=== PATIENT | male | born 1995 | race Caucasian/White ===

== ENCOUNTER 2016-07-22 11:44 | Emergency (ER) | payer OTHER ==
[~2016-07-22] VITALS: Ht 185.4 cm; Wt 102.0 kg
[2016-07-22 11:49] VITALS: TEMP 37.5; Ht 185.4 cm; Wt 102.0 kg
[2016-07-22] MEDS ORDERED: KETOROLAC TROMETHAMINE 30 MG/ML VIAL IV STA (12:13)
[2016-07-22] MEDS ORDERED: SODIUM CHLORIDE 0.9% 1000ML 1,000 ML IV STA (12:13)
[2016-07-22 12:29] VITALS: O2SAT 95
[2016-07-22] MEDS ORDERED: ALBUT/IPRATROP 3MG/0.5MG NEB 3 ML VIAL INH ONE (12:30)
--- NOTE | 2016-07-22 12:33 | DIAGNOSTIC IMAGING REPORT ---
CHEST ONE VIEW PORTABLE CLINICAL HISTORY: Chills, sore throat, flulike symptoms COMPARISON STUDY: No previous studies for comparison. FINDINGS: The cardiac silhouette is borderline enlarged. There is no focal pulmonary consolidation. There is no failure. There are no pleural effusions.[ IMPRESSION: Borderline enlarged cardiac silhouette. No evidence of focal pulmonary consolidation Electronically signed by: Stefan Reyes M.D. 07/22/2016 12:31 PM Dictated Date/Time: 07/22/2016 12:30 PM
[2016-07-22 12:44] VITALS: PULSE 78; O2SAT 97
[2016-07-22 12:57] LABS: BASO % 0.1 %; BASO ABS # 0.01 K/uL (0-0.2); COMPLETE YES; EOS % 2.2 %; HEMATOCRIT 44.1 % (42-52); IG% 0.3 %; LYMPH % 10.5 %; LYMPH ABS # 1.28 K/uL (1.2-3.4); MEAN CELL VOLUME 85.1 fL (80-100); MEAN CORPUSCULAR HEMOGLOBIN 29.5 pg (25-34); MEAN CORPUSCULAR HGB CONC 34.7 g/dl (32-36); MONO % 10.6 %; NEUT % 76.3 %; PLATELET COUNT 201 K/uL (130-400); RED BLOOD COUNT 5.18 M/uL (4.7-6.1); WHITE BLOOD COUNT 12.17 K/uL (4.8-10.8)
--- NOTE | 2016-07-22 13:03 | EMERGENCY ROOM VISIT NOTE ---
History Report prepared by Julianne: Curtis Scanlon Under the Supervision of: Dr. Vinod Enrique M.D. First contact with patient: 12:01 Chief Complaint: FLU LIKE SX Stated Complaint: SORE THROAT, ACHEY BODY, CHILLS History of Present Illness The patient is a 21 year old male who presents to the Emergency Room with complaints of persistent throat pain starting 2 days ago. He also complains of a cough with brown sputum. He has worsening pain with swallowing. He also complains of a headache and generalized body aches. He has been taking Shani- [place] without relief. He took DayQuil 2 hours ago without relief. The patient denies chest pain, shortness of breath, nausea, vomiting, diarrhea, or any other complaints. Source of History: patient Onset: 2 days ago Position: throat Timing: other (persistent) Modifying Factors (Relieving): other (Shani-[place] without relief; DayQuil 2 hours ago without relief) Associated Symptoms: + cough, + headache, No SOB, No chest pain, No diarrhea , No nausea, No vomiting Review of Systems See HPI for pertinent positives & negatives. A total of 10 systems reviewed and were otherwise negative. Past Medical & Surgical Medical Problems: (1) Appendicitis Surgical Problems: (1) History of appendectomy Family History Patient reports no known family medical history. Social History Smoking Status: Never Smoker Marital Status: single Occupation Status: student Current/Historical Medications Scheduled Oseltamivir (Tamiflu), 75 MG PO BID Allergies Coded Allergies: No Known Allergies (Unverified , 07/22/16) Physical Exam Vital Signs Date Time Temp Pulse Resp B/P Pulse Ox O2 Delivery O2 Flow Rate FiO2 07/22/16 15:10 111 18 153/74 100 Room Air 07/22/16 13:58 109 07/22/16 13:40 111 18 139/75 100 07/22/16 12:44 78 14 97 Room Air 07/22/16 12:29 95 Room Air 07/22/16 11:49 37.5 100 18 139/85 95 Room Air Physical Exam GENERAL: Patient is a healthy-appearing well-nourished HEAD: Normocephalic atraumatic EYES: Ocular movements intact pupils equal and react to light OROPHARYNX mucous membranes are moist no exudates present no erythema or edema present NECK: Supple no nuchal rigidity. No evidence of meningitis or encephalitis on exam. CHEST: Good equal expansion LUNGS: Clear and equal to auscultation CARDIAC: Normal S1 and S2 ABDOMEN: Soft nontender no guarding BACK: No CVA tenderness EXTREMITIES: No pain upon palpation normal muscle strength in all groups no clubbing cyanosis or edema NEURO: Patient is following commands is answering questions appropriately. Alert and oriented x3 Cranial Nerves 2-12 grossly intact Medical Decision & Procedures ER Provider Diagnostic Interpretation: X-ray results as stated below per interpretation by me and the radiologist: CHEST ONE VIEW PORTABLE CLINICAL HISTORY: Chills, sore throat, flulike symptoms COMPARISON STUDY: No previous studies for comparison. FINDINGS: The cardiac silhouette is borderline enlarged. There is no focal pulmonary consolidation. There is no failure. There are no pleural effusions.[ IMPRESSION: Borderline enlarged cardiac silhouette. No evidence of focal pulmonary consolidation Electronically signed by: Stefan Reyes M.D. 07/22/2016 12:31 PM Dictated Date/Time: 07/22/2016 12:30 PM Laboratory Results 07/22/16 12:30 Red Blood Count 5.18, Mean Corpuscular Volume 85.1, Mean Corpuscular Hemoglobin 29.5, Mean Corpuscular Hemoglobin Concent 34.7, Mean Platelet Volume 10.0, Neutrophils (%) (Auto) 76.3, Lymphocytes (%) (Auto) 10.5, Monocytes (%) (Auto) 10.6, Eosinophils (%) (Auto) 2.2, Basophils (%) (Auto) 0.1, Neutrophils # (Auto ) 9.28, Lymphocytes # (Auto) 1.28, Monocytes # (Auto) 1.29, Eosinophils # (Auto ) 0.27, Basophils # (Auto) 0.01 07/22/16 12:30 Test 07/22/16 12:28 07/22/16 12:30 07/22/16 12:32 Influenza Type A (RT-PCR) POS for Influ A (NEG) Influenza Type B (RT-PCR) Neg for Influ B (NEG) White Blood Count 12.17 K/uL (4.8-10.8) Red Blood Count 5.18 M/uL (4.7-6.1) Hemoglobin 15.3 g/dL (14.0-18.0) Hematocrit 44.1 % (42-52) Mean Corpuscular Volume 85.1 fL (80-100) Mean Corpuscular Hemoglobin 29.5 pg (25-34) Mean Corpuscular Hemoglobin Concent 34.7 g/dl (32-36) Platelet Count 201 K/uL (130-400) Mean Platelet Volume 10.0 fL (7.4-10.4) Neutrophils (%) (Auto) 76.3 % Lymphocytes (%) (Auto) 10.5 % Monocytes (%) (Auto) 10.6 % Eosinophils (%) (Auto) 2.2 % Basophils (%) (Auto) 0.1 % Neutrophils # (Auto) 9.28 K/uL (1.4-6.5) Lymphocytes # (Auto) 1.28 K/uL (1.2-3.4) Monocytes # (Auto) 1.29 K/uL (0.11-0.59) Eosinophils # (Auto) 0.27 K/uL (0-0.5) Basophils # (Auto) 0.01 K/uL (0-0.2) RDW Standard Deviation 40.6 fL (36.4-46.3) RDW Coefficient of Variation 13.1 % (11.5-14.5) Immature Granulocyte % (Auto) 0.3 % Immature Granulocyte # (Auto) 0.04 K/uL (0.00-0.02) Anion Gap 9.0 mmol/L (3-11) Est Creatinine Clear Calc Drug Dose 133.3 ml/min Estimated GFR () 110.6 Estimated GFR (Non- 95.5 BUN/Creatinine Ratio 11.6 (10-20) Calcium Level 9.5 mg/dl (8.5-10.1) Total Bilirubin 0.8 mg/dl (0.2-1) Direct Bilirubin 0.2 mg/dl (0-0.2) Aspartate Amino Transf (AST/SGOT) 18 U/L (15-37) Alanine Aminotransferase (ALT/SGPT) 22 U/L (12-78) Alkaline Phosphatase 86 U/L (45-117) Total Protein 7.1 gm/dl (6.4-8.2) Albumin 3.9 gm/dl (3.4-5.0) Monoscreen NEG (NEG) Urine Color YELLOW Urine Appearance CLEAR (CLEAR) Urine pH 8.0 (4.5-7.5) Urine Specific [place] 1.020 (1.000-1.030) Urine Protein NEG (NEG) Urine Glucose (UA) NEG (NEG) Urine Ketones NEG (NEG) Urine Occult Blood NEG (NEG) Urine Nitrite NEG (NEG) Urine Bilirubin NEG (NEG) Urine Urobilinogen NEG (NEG) Urine Leukocyte Esterase NEG (NEG) Labs reviewed by ED physician. Medications Administered Medications (Trade) Dose Ordered Sig/Yuri Route Start Time Stop Time Status Last Admin Dose Admin Sodium Chloride (Nss 1000ml) 1,000 ml @ 999 mls/hr Q1H1M STAT IV 07/22/16 12:13 07/22/16 13:13 DC 07/22/16 12:38 999 MLS/HR Ketorolac Tromethamine (Toradol Inj) 30 mg NOW STAT IV 07/22/16 12:13 07/22/16 12:15 DC 07/22/16 12:39 30 MG Albuterol/ Ipratropium (Duoneb) 12 ml ONE ONCE INH 07/22/16 12:30 07/22/16 12:31 DC 07/22/16 12:43 12 ML Albuterol (Ventolin Hfa Inhaler) 2 puffs NOW STAT INH 07/22/16 13:25 07/22/16 13:26 DC 07/22/16 13:25 2 PUFFS Ceftriaxone Sodium (Rocephin Inj) 1 gm NOW STAT IV 07/22/16 14:26 07/22/16 14:27 DC 07/22/16 14:34 1 GM Oseltamivir Phosphate (Tamiflu Cap) 75 mg NOW STAT PO 07/22/16 14:42 07/22/16 14:43 DC 07/22/16 14:56 75 MG ED Course 1201: Past medical records reviewed. The patient was evaluated in room C10. A complete history and physical examination was performed. 1213: Toradol Inj 30 mg IV, Sodium Chloride 1000 ml @ 999 mls/hr IV 1230: DuoNeb 12 ml INH 1325: Albuterol 2 puffs INH 1426: Rocephin Inj 1 gm IV 1442: Tamiflu Cap 75 mg Po 1445: Upon reexamination the patient is resting comfortably. I discussed results and treatment plan with the patient. He verbalizes agreement and understanding. The patient is ready for discharge. Medical Decision Differential diagnosis: Etiologies such as viral syndrome, tonsillitis, streptococcal pharyngitis, mononucleosis, peritonsillar abscess, retropharyngeal abscess, otitis, pneumonia , influenza, as well as others were entertained. This is a 21-year-old male who presents emergency department complaining of flulike symptoms. An IV was established, patient given normal saline bolus. I will note that the patient has no evidence of meningitis encephalitis on examination and is well in appearance. He does have positive flu swab. For this reason the patient was given normal saline bolus, Toradol and started on Tamiflu. There is no evidence of pneumonia on his chest x-ray. I feel that the patient is well enough to be discharged home for follow-up with his primary care physician. Patient was in agreement with the treatment plan. Impression Primary Impression: Influenza A Scribe Attestation The scribe's documentation has been prepared under my direction and personally reviewed by me in its entirety. I confirm that the note above accurately reflects all work, treatment, procedures, and medical decision making performed by me. Departure Information Dispostion Home / Self-Care Prescriptions Oseltamivir (Tamiflu) 75 Mg Cap 75 MG PO BID, #10 CAP Prov: Vinod Enrique MD 07/22/16 Referrals No Doctor, Assigned (PCP) Forms HOME CARE DOCUMENTATION FORM, IMPORTANT VISIT INFORMATION Patient Instructions ED Flu, My [facility] Additional Instructions Increase fluids next 48 hours Take 600 mg Ibuprofen every 6 hours Take 1000 mg Tylenol every 6 hours You have been examined and treated today on an emergency basis only. This is not a substitute for, or an effort to provide, complete comprehensive medical care. It is impossible to recognize and treat all injuries or illnesses in a single emergency department visit. It is therefore important that you follow up closely with your PCP. Call as soon as possible for an appointment. Thank you for your time and consideration. I look forward to speaking with you again soon. Please don't hesitate to call us if you have any questions.
[2016-07-22 13:04] LABS: URINE APPEARANCE CLEAR (CLEAR); URINE BILIRUBIN NEG (NEG); URINE COLOR YELLOW; URINE NITRITE NEG (NEG); UROBILINOGEN NEG (NEG)
[2016-07-22 13:08] LABS: BUN/CREATININE RATIO 11.6 (10-20); CALCIUM 9.5 mg/dl (8.5-10.1); CREATININE 1.1 mg/dl (0.60-1.40); POTASSIUM 4.1 mmol/L (3.5-5.1)
[2016-07-22 13:09] LABS: MANUAL MICROSCOPIC REQUIRED? NO; REVIEW REQ? NO
[2016-07-22] MEDS ORDERED: ALBUTEROL HFA 8 GM INHALER INH STA (13:25)
[2016-07-22] MEDS ORDERED: CEFTRIAXONE SOD INJ 1 GM ADDVIAL IV STA (14:26)
[2016-07-22 14:42] LABS: INFLUENZA A PCR POS for Influ A (NEG); INFLUENZA B PCR Neg for Influ B (NEG)
[2016-07-22] MEDS ORDERED: OSELTAMIVIR PHOSPHATE 75 MG CAP PO STA (14:42)
[2016-07-22] MEDS ORDERED: OSEL75CA12 PO (14:47)
[2016-07-22 15:10] VITALS: BP 153/74; PULSE 111; O2SAT 100
[2016-07-24 13:18] LABS: EBV EARLY ANTIGEN AB <0.91 INDEX; EPSTEIN BARR VIR CAPSID IGG 4.23 INDEX
== END 2016-07-22 15:16 | disposition home or self-care (01) ==
LOC: C.EDB 11:48 → C.EDC 15:16
DX: J09.X2 Influenza due to identified novel influenza A virus with other respiratory manifestations (principal); Z86.19 Personal history of other infectious and parasitic diseases; Z98.890 Other specified postprocedural states